=== PATIENT | female | born 1955 | race Two or more races ===

== ENCOUNTER 2017-01-06 17:45 | Emergency (ER) | payer OTHER ==
--- NOTE | ~2017-01-06 | US85 ---
[facility] A Service of [facility] & [facility] RADIOLOGY TEXT RESULTS PATIENT: CHRISTEL GONZALEZ LOCATION: SED : 57 UNIT #: [id number] AGE: [address]: Martinez Rodriguez SEX: F ORDER DR: [id number] [address] [address] [id number] E MR#: [id number] Acc #: [id number] NAME: CHRISTEL GONZALEZ : 1955 SEX: F STUDY DATE/TIME: 01/06/2017 19:22 UNIT: SED ROOM: STUDY DESCRIPTION: LE Veins Unilat or Ltd Stdy Attending Physician: Martinez Rodriguez P.A.-C. Ordering Physician: Martinez Rodriguez P.A.-C. MEDICAL IMAGING REPORT This report is preliminary unless electronic signature is present. EXAM Left lower extremity venous Doppler INDICATION Left lower extremity pain for the past 2 weeks, increasing over the past 2 days. PROCEDURE Mcleod-scale, color Doppler and spectral imaging deep veins of the left leg. COMPARISON None. FINDINGS Deep veins of the left leg compress normally, show normal color Doppler and spectral characteristics. IMPRESSION No evidence for DVT in the left leg. Dictated by... Pancho Bruno M.D. THIS IS AN ELECTRONICALLY VERIFIED REPORT Pancho Bruno M.D. at 01/09/2017 7:22 AM GAOL/sedrick TD: 01/07/2017 14:35 JOB #: [id number] MEDICAL IMAGING REPORT
[~2017-01-06 17:45] MED LIST: NO MEDICATIONS
== END 2017-01-06 20:24 | disposition home or self-care (01) ==
LOC: SED 17:45
DX: M79.662 Pain in left lower leg (principal); Z91.040 Latex allergy status
CPT/HCPCS: 93971; 99284